=== PATIENT | female | born 1980 | race Caucasian/White ===

== ENCOUNTER → 2023-08-06 | Outpatient (CLI) | payer BC ==
--- NOTE | 2023-08-09 20:12 | MM ---
Reason for Exam: Screening (asymptomatic). Baseline mammogram. Patient History: Menarche at age 11. First Full-Term at age 24. Premenopausal. Maternal aunt (great) had breast cancer at or over age 50. Paternal grandmother had breast cancer at or over age 50. Risk Values: Natalya 5 year model risk: 0.8%. NCI Lifetime model risk: 10.8%. Prior Study Comparison: Patient's first Mammogram. Tissue Density: The breasts are heterogeneously dense, which may obscure small masses. Findings: Analyzed By CAD. 2 areas of asymmetric density noted within each cc view of either breast. These could represent superimposition shadow but further evaluation is recommended. No suspicious calcifications or other discrete abnormality is seen. Overall Assessment: Incomplete: need additional imaging evaluation, BI-RAD 0 Management: Special View Mammogram of both breasts. Additional views to include spot 3-D CC and 3-D CC rolled views. Additional bilateral tiny lateral views. Targeted ultrasound of either breast if any persisting abnormality. [facility] will attempt to contact patient to return for supplemental views and ultrasound if indicated. Electronically signed and approved by: Vanessa Ruiz M.D. Radiologist
== END | disposition home or self-care (01) ==
LOC: RADMAMWWP 09:07 → MERGE 09:15
PROVIDERS: ATTEND Obstetrics & Gynecology
DX: Z12.31 Encounter for screening mammogram for malignant neoplasm of breast (principal); Z80.3 Family history of malignant neoplasm of breast
CPT/HCPCS: 77063; 77067

== ENCOUNTER → 2023-08-11 | Outpatient (CLI) | payer BC ==
--- NOTE | 2023-08-11 13:27 | MM ---
Reason for Exam: Additional evaluation requested from abnormal screening. Last screening mammogram was performed less than 1 month ago. Patient History: Menarche at age 11. First Full-Term at age 24. Premenopausal. Maternal aunt (great) had breast cancer at or over age 50. Paternal grandmother had breast cancer at or over age 50. Risk Values: Natalya 5 year model risk: 0.8%. NCI Lifetime model risk: 10.8%. Prior Study Comparison: 08/06/2023 Bilateral MG 3D screening mammo w/cad, [facility]. Tissue Density: The breasts are heterogeneously dense, which may obscure small masses. Findings: Analyzed By CAD. There are 2 areas of asymmetric density on the right cc view become less pronounced on additional views. No clear persisting abnormality is seen. On the left, the central density does not clearly persist. There is a subtle 1.0 cm circumscribed oval nodular density which persists in the lateral aspect for which ultrasound is recommended. Overall Assessment: Incomplete: need additional imaging evaluation, BI-RAD 0 Management: Diagnostic Breast Ultrasound of the left breast. Lateral half. Electronically signed and approved by: Vanessa Ruiz M.D. Radiologist
--- NOTE | 2023-08-11 14:04 | USB ---
Reason for Exam: Additional evaluation requested from abnormal screening. Patient History: Menarche at age 11. First Full-Term at age 24. Premenopausal. Maternal aunt (great) had breast cancer at or over age 50. Paternal grandmother had breast cancer at or over age 50. Risk Values: Natalya 5 year model risk: 0.8%. NCI Lifetime model risk: 10.8%. Technique: Method: Targeted. Prior Study Comparison: 08/06/2023 Bilateral MG 3D screening mammo w/cad, [facility]. Findings: The lateral section of the breast of the left breast, the axilla of the left breast and the retroareolar of the left breast were scanned. Targeted ultrasound lateral half of the left breast 12:00 to 6:00 including scanning of the subareolar region and axilla. * At the 3:00 position, 2 cm from the nipple, there is a lobulated lesion that appears somewhat anechoic possibly with some internal debris measuring 8 x 6 x 4 mm. This may correspond to the mammographic finding. Some adjacent vascularity is noted. Six-month follow-up recommended. * A couple prominent, borderline sized and mildly thickened lymph nodes in the axilla, largest measuring 1.5 x 1.3 x 0.5 cm. Probably reactive/post inflammatory. Six-month follow-up recommended. * Dense tissues present throughout. No other solid or cystic lesion. Overall Assessment: Probably benign, BI-RAD 3 Management: Diagnostic Mammogram of the left breast in 6 months. Diagnostic Breast Ultrasound of the left breast in 6 months. A clinical breast exam by your physician is recommended on an annual basis and results should be correlated with mammographic findings. This exam should not preclude additional follow-up of suspicious palpable abnormalities. Results were given to the patient verbally at the time of exam. Electronically signed and approved by: Vanessa Ruiz M.D. Radiologist
== END | disposition home or self-care (01) ==
LOC: RADMAMWWP 12:57
PROVIDERS: ATTEND Obstetrics & Gynecology
DX: R92.333 Mammographic heterogeneous density, bilateral breasts (principal); Z80.3 Family history of malignant neoplasm of breast
CPT/HCPCS: 77062; 77066